=== PATIENT | female | born 1950 | race Caucasian/White ===

== ENCOUNTER 2022-05-10 08:16 | Outpatient (CLI) | payer MEDICARE, OTHER, SELFPAY | END 2022-05-10 08:17 | disposition home or self-care (01) | PROVIDERS: PCP Family Medicine; Visit Provider Family Medicine | DX: M54.16 Radiculopathy, lumbar region (principal); M51.36 Other intervertebral disc degeneration, lumbar region | CPT/HCPCS: 62323; J0702; Q9966 ==

== ENCOUNTER 2022-11-22 09:10 | Outpatient (CLI) | payer MEDICARE, OTHER, SELFPAY | END 2022-11-22 09:11 | disposition home or self-care (01) | LOC: INJ CL 09:12 | PROVIDERS: PCP Family Medicine; Visit Provider Family Medicine | DX: M17.11 Unilateral primary osteoarthritis, right knee (principal); M25.561 Pain in right knee | CPT/HCPCS: 64454 ==

== ENCOUNTER 2022-12-20 12:12 | Outpatient (CLI) | payer MEDICARE, OTHER, SELFPAY | END 2022-12-20 12:13 | disposition home or self-care (01) | LOC: INJ CL 12:13 | PROVIDERS: PCP Family Medicine; Visit Provider Family Medicine | DX: M17.11 Unilateral primary osteoarthritis, right knee (principal); M25.561 Pain in right knee; G89.29 Other chronic pain | CPT/HCPCS: 64624; J2250; J3010 ==

== ENCOUNTER 2023-03-28 09:24 | Outpatient (CLI) | payer MEDICARE, OTHER, SELFPAY | END 2023-03-28 09:25 | disposition home or self-care (01) | LOC: INJ CL 09:26 | PROVIDERS: PCP Family Medicine; Visit Provider Family Medicine | DX: M54.16 Radiculopathy, lumbar region (principal); M51.36 Other intervertebral disc degeneration, lumbar region | CPT/HCPCS: 62323; J0702; Q9966 ==

== ENCOUNTER 2024-06-18 09:02 | Outpatient (CLI) | payer MEDICARE, OTHER, SELFPAY | END 2024-06-18 09:03 | disposition home or self-care (01) | LOC: INJ CL 09:04 | PROVIDERS: PCP Family Medicine; Visit Provider Family Medicine | DX: M54.16 Radiculopathy, lumbar region (principal); M51.369 Other intervertebral disc degeneration, lumbar region without mention of lumbar back pain or lower extremity pain | CPT/HCPCS: 62323; J0702; Q9966 ==

== ENCOUNTER 2025-01-28 08:03 | Outpatient (CLI) | payer MEDICARE, OTHER, SELFPAY | END 2025-01-28 08:04 | disposition home or self-care (01) | LOC: INJ CL 08:05 | PROVIDERS: PCP Family Medicine; Visit Provider Family Medicine | DX: M54.16 Radiculopathy, lumbar region (principal); M51.369 Other intervertebral disc degeneration, lumbar region without mention of lumbar back pain or lower extremity pain | CPT/HCPCS: 62323; J0702; Q9966 ==

== ENCOUNTER 2025-07-01 08:10 | Outpatient (CLI) | payer MEDICARE, OTHER, SELFPAY | END 2025-07-01 08:11 | disposition home or self-care (01) | LOC: INJ CL 08:11 | PROVIDERS: PCP Family Medicine; Visit Provider Family Medicine | DX: M54.16 Radiculopathy, lumbar region (principal); M51.369 Other intervertebral disc degeneration, lumbar region without mention of lumbar back pain or lower extremity pain | CPT/HCPCS: 62323; J0702; Q9966 ==